=== PATIENT | male | born 1955 | race Caucasian/White ===

== ENCOUNTER 2020-03-13 14:30 | Outpatient (CLI) | payer BC, SELFPAY ==
--- NOTE | 2020-03-13 09:45 | DI.RAD_ITS ---
EXAM: XR KNEE RT 2V AP,LAT CLINICAL HISTORY: pain. TECHNIQUE: 2D digital imaging was performed. COMPARISON: No exams were available for comparison FINDINGS: Mild degenerative changes are seen in the right knee characterized by periarticular spurring particul sofya at the patellofemoral joint. There are densities seen in the suprapatellar joint suspicious for loose bodies. No fracture or dislocation is identified. No joint effusion is seen. The soft tissu es are unremarkable. IMPRESSION: Mild degenerative changes of the right knee. DATA REPOSITORY: RADIATION DOSE DELIVERED:
== END 2020-03-13 14:50 ==
PROVIDERS: PCP Physician Assistant Medical; Visit Provider Orthopaedic Surgery
DX: M17.11 Unilateral primary osteoarthritis, right knee (principal)
CPT/HCPCS: 73560

== ENCOUNTER 2021-04-29 13:40 | Outpatient (CLI) | payer BC, SELFPAY ==
--- NOTE | 2021-04-29 13:30 | DI.RAD_ITS ---
Exam(s) XR KNEE RT 3V AP,LAT,YANCY EXAM: XR KNEE RT 3V AP,LAT,YANCY CLINICAL HISTORY: Internal derangement of right knee. TECHNIQUE: 2D digital imaging was performed of the right knee. Four views obtained. AP, lateral and Merchant views were obtained. COMPARISON: CR XR KNEE RT 2V AP,LAT from 03/13/2020 FINDINGS: BONES: No acute fracture is present. No bony destructive lesion is seen. JOINTS: The knee is normally aligned. No joint effusion is seen. Mild spurring of the posterior lopez la. There again seen densities in the suprapatellar region suspicious for loose bodies. SOFT TISSUE: Normal. IMPRESSION: Stable appearance of the right knee. DATA REPOSITORY: RADIATION DOSE DELIVERED:
== END 2021-04-29 13:41 | disposition home or self-care (01) ==
LOC: DIORS 13:40
PROVIDERS: PCP Family Medicine; Referring Provider Family Medicine; Visit Provider Student in an Organized Health Care Education/Training Program
DX: M25.561 Pain in right knee; M23.8X1 Other internal derangements of right knee
CPT/HCPCS: 73562

== ENCOUNTER 2021-05-07 00:28 | Outpatient (CLI) | payer BC, SELFPAY ==
--- NOTE | 2021-05-07 13:15 | DI.MRI_ITS ---
Exam(s) MR LOWER JOINT RT WO EXAM: MR LOWER JOINT RT WO CLINICAL HISTORY: R KNEE PAIN,INTERNAL DERANGEMENT,M23.91 TECHNIQUE: Multiplanar multisequence MRI of the knee was performed. Plain films of 08/28/2011 and 04/29/2021 reviewed COMPARISON: CR XR KNEE RT 2V AP,LAT from 03/13/2020 CR XR KNEE RT 2V AP,LAT from 03/13/2020 CR XR KNEE RT 3V AP,LAT,YANCY from 04/29/2021 FINDINGS: EFFUSION: There is a small-moderate size joint effusion. There is no Ruiz cyst in the popliteal fos sa. MARROW:There is no evidence of fracture, bone contusion, nor osteochondral defects.. There are no si gnificant osseous lesions. PATELLOFEMORAL COMPARTMENT: The quadriceps tendon is intact. The patellar ligament is intact. There is moderate relatively uniform thinning of the retropatellar cartilage. There is no intraosseo us signal to suggest recent patellar dislocation. There are no patellar retinacular tears. CRUCIATE LIGAMENTS: The anterior cruciate ligament is intact.The posterior cruciate ligament is intac t. MEDIAL COMPARTMENT/MEDIAL MENISCUS: There is a prominent oblique tear in the posterior horn of the me dial meniscus with a small degenerative cysts meniscal cyst behind the posterior horn measuring appro ximately 5 x 4 millimeters. The meniscal root is intact.No obvious tear of the anterior horn noted.. There are moderate cartilage degenerative changes over the medial femoral condyle and there are small marginal osteophytes. Also degenerative pointing of the tibial spines noted. Very mild subarticula r edema in the subjacent tibial plateau. MEDIAL COLLATERAL LIGAMENT: There is some fluid interposed between the superficial and deep layers of the MCL LATERAL COMPARTMENT/LATERAL MENISCUS: There is no evidence of lateral meniscal tear.There are no josé antonio dral defects, osteochondral defects, subarticular marrow edema, nor osteophytes evident.Small benign bone island noted subarticular aspect of the main weight-bearing surface of the lateral femoral condy le. ILIOTIBIAL BAND: Intact LATERAL COLLATERAL LIGAMENT COMPLEX: The fibular collateral ligament is intact. The biceps femoris t endon is intact.Popliteus muscle and tendon are intact. IMPRESSION: 1. There is a prominent oblique tear in the posterior horn of the medial meniscus and there is an ass ociated small 5 x 4 millimeter degenerative meniscal cyst. 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 No osteochondral defects. 2. No tears of the lateral meniscus nor significant degenerative changes in the lateral compartment. 3. There is moderate thinning of the retropatellar cartilage. No osteochondral defect. No patellar retinacular tears. 4. Fluid within the MCL bursa between the deep and superficial components. However, there is no prom inent MCL tear evident. Anterior and posterior cruciate ligaments are intact, as is the lateral collateral ligament complex a nd iliotibial band. Small amount of increased joint fluid. No large joint effusion. No Ruiz cyst. DATA REPOSITORY:
== END 2021-05-07 00:48 ==
PROVIDERS: PCP Family Medicine; Visit Provider Student in an Organized Health Care Education/Training Program
DX: M25.561 Pain in right knee (principal); M25.461 Effusion, right knee; S83.241A Other tear of medial meniscus, current injury, right knee, initial encounter; M23.021 Cystic meniscus, posterior horn of medial meniscus, right knee; M17.11 Unilateral primary osteoarthritis, right knee; M23.8X1 Other internal derangements of right knee
CPT/HCPCS: 73721

== ENCOUNTER 2021-05-28 01:55 | Outpatient (CLI) | payer BC, SELFPAY ==
[2021-05-28 11:46] LABS: Source Nasal/Nares
[2021-05-28 16:14] LABS: COVID-19 PCR Negative (Negative)
== END 2021-05-28 01:56 | disposition home or self-care (01) ==
LOC: LBO 01:55
PROVIDERS: PCP Family Medicine; Visit Provider Student in an Organized Health Care Education/Training Program
DX: Z20.822 Contact with and (suspected) exposure to COVID-19 (principal)
CPT/HCPCS: 87635

== ENCOUNTER 2021-05-30 06:20 | Day surgery (SDC) | payer BC, SELFPAY ==
[2021-05-30] VITALS (7 sets, daily range): BP systolic 113–140; BP diastolic 64–79; PULSE 65–73; RESP 13–20; TEMP 36.4–36.9; O2SAT 94–97; BMI 53.6
--- NOTE | 2021-05-30 06:44 | W.ANESPRE ---
General Info Date of Service Date Performed: 05/30/21 Height: 5 ft 3 in Weight: 137.5 kg Body Mass Index (BMI): 53.6 Surgical Procedure: Operation Date: 05/30/21 07:40 Proposed Procedures Side Surgeon p Knee Arthroscopy w/loose body removal, partial medial menisectomy and any other indicated meniscal, chondral or synovial surgery. Right Ryan Wei MD Meds Allergies and Home Medications Allergies Allergy/AdvReac Type Severity Reaction Status Date / Time No Known Allergies Allergy Unverified 05/30/21 06:34 Home Medication Medication Instructions Recorded lisinopril 20 mg PO DAILY 11/02/13 mometasone [Nasonex] 2 spry NS DAILY PRN 11/02/13 Glucosamine Sulf-Chondroitin 1 cap PO DAILY 11/03/13 omeprazole 20 mg capsule,delayed 20 mg PO DAILY 03/13/20 release ropinirole 0.25 mg tablet 1 mg PO HS PRN tab 03/13/20 simvastatin 5 mg tablet 20 mg PO HS tab 03/13/20 naproxen sodium [Aleve] 220 mg PO BID PRN 05/30/21 Current Visit Medications: Current Medications Generic Name Dose Route Start Last Admin Trade Name Freq PRN Reason Stop Dose Admin Ringer's Solution 1,000 mls @ 100 mls/hr 05/30/21 06:00 IV 06/09/21 23:59 INFUSION ELISEO Cefazolin Sodium 3,000 mg/ 100 mls @ 200 mls/hr 05/30/21 06:00 Sodium Chloride IVPB 05/30/21 16:00 PREOP ELISEO IV Miscellaneous Supplies 1 each 05/30/21 06:00 Iv Access IV 06/09/21 23:59 DIRECTED ELISEO Sodium Chloride 0 ml 05/30/21 06:00 Normal Saline Flush 10 Ml Syr IV 06/09/21 23:59 PRN PRN Sodium Chloride 0 ml 05/30/21 06:00 Normal Saline 10 Ml Vial IJ 06/09/21 23:59 DIRECTED PRN Sterile Water 0 ml 05/30/21 06:00 Water,Injection,Sterile 10 Ml Vial IJ 06/09/21 23:59 DIRECTED PRN PFSH Active Problems Active Problems: Problem Status Onset Code Plantar fasciitis of left foot M72.2 Loose body in knee, right knee M23.41 Medial meniscus tear S83.249A Skin tag L91.8 Medical History Medical History GERD (gastroesophageal reflux disease) HLD (hyperlipidemia) HTN (hypertension) NAYANA (obstructive sleep apnea) RLS (restless legs syndrome) Surgical History Surgical History Hx of cholecystectomy Tobacco Smoking/Tobacco Use Status: Never Alcohol Alcohol Intake: current Alcohol intake frequency: a few times a month Substance Use Substance use: Never Substance use type: does not use Vital Signs and Lab Results Vital Signs Most Recent Vital Signs in EMR: Most Recent Vital Signs Temp Pulse Resp BP Pulse Ox 36.4 C L 73 18 140/78 97 05/30/21 06:29 05/30/21 06:29 05/30/21 06:29 05/30/21 06:29 05/30/21 06:29 Lab Results Blood Type / Crossmatch: No Data to Display Complete Blood Count: No Data to Display Complete Metabolic Panel: No Data to Display Liver Function Panel: No Data to Display Coagulation Panel: No Data to Display Cardiac Panel: No Data to Display Arterial Blood Gas: No Data to Display Venous Blood Gas: No Data to Display Pancreas Panel: No Data to Display Thyroid Panel: No Data to Display Infectious Disease: Coronavirus (COVID-19)(PCR) Negative (Negative) 05/28/21 08:29 05/28/21 Coronavirus 2019 Source Nasal/Nares 05/28/21 08:29 05/28/21 Blood Cultures: No Data to Display Toxicology Panel: No Data to Display Anesthesia Assessment and Plan Anesthesia History Personal History: No History of Anesthesia Complications Family History: No Family History of Anesthesia Complications Exercise Tolerance Exercise Tolerance: Metabolic Equivalents>4 Pertinent Negatives Pertinent Negatives: No Symptoms of GERD, No Major Cardiovascular Symptoms or Complaints and No Major Pulmonary Symptoms or Complaints Cardiac & Pulmonary Exam Cardiac Exam: Normal S1/S2 Heart Sounds Pulmonary Exam: Clear Bilateral Breath Sounds Implantable Cardiac Device Does patient have a Pacemaker or an ICD?: No Airway Exam Known Difficult Airway: No Mallampati Class: 2 Mouth Opening: Narrow (< 3cm) Thyromental Distance: Greater than 3 cm Facial Hair: Full Baptiste Neck Range of Motion: Full ROM Neck Circumference: Thick Teeth Condition: Normal Dentition ASA Classification ASA Score: ASA 3 Emergency Case?: No NPO Status NPO Status: NPO Clears >2 hours, Solids >8 hours Anesthesia Plan Resuscitation Status: Full Code Anesthesia Technique: General Anesthesia Airway Planned: Endotracheal Tube Monitors Used: Standard Monitors Preoperative Comments:: No recent history of GA/ETT, discussed positioning with patient for intubation and anesthetic risk related to elevated BMI.
[2021-05-30] MEDS: Lactated Ringers 1,000 ML 100 ML IV (06:56)
[2021-05-30] MEDS: ceFAZolin 3,000 MG in Normal Saline 100 ML 200 MG IVPB (07:33)
[2021-05-30] MEDS: Bupivacaine 0.25% Pres-Free 30 ML VIAL (08:50)
[2021-05-30] MEDS: EPINEPHrine 30 MG/30 ML VIAL (08:50)
[2021-05-30] MEDS: MORPHine 4 MG/ML SYR (08:50)
--- NOTE | 2021-05-30 09:10 | W.PM.DSUDISC ---
Discharge Plan Disposition Patient Disposition: HOME Condition: Stable Discharge Details Reason For Visit: Right knee surgery Attending Provider: Ryan Wei Primary Care Provider: James Aguilera Home Meds and New Rx's Prescriptions: New naproxen 250 mg tablet 250 - 500 mg PO BID PRNQty: 40 RF: 0 aspirin 81 mg tablet,delayed release (DR/EC) 81 mg PO BID 14 Days Qty: 28 RF: 0 oxycodone 5 mg tablet 5 - 10 mg PO Q4H MDD 30 mg PRN (Reason: moderate to severe pain) Qty: 18 RF: 0 Continued omeprazole 20 mg capsule,delayed release(DR/EC) 20 mg PO DAILY RF: 0 lisinopril 20 MG tablet 20 mg PO DAILY RF: 0 mometasone [Nasonex] 17 GM spray,non-aerosol 2 spry NS DAILY PRN RF: 0 Glucosamine Sulf-Chondroitin 1 EACH capsule 1 cap PO DAILY RF: 0 ropinirole 0.25 mg tablet 1 mg PO HS PRN RF: 0 simvastatin 5 mg tablet 20 mg PO HS RF: 0 Discontinued naproxen sodium [Aleve] 220 mg Tablet 220 mg PO BID PRNRF: 0 Discharge Instructions Additional Instructions: Surgery: Right knee arthroscopy with loose body removal, partial medial & lateral meniscectomy, and skin tag removal Activity: Weight-bearing as tolerated. Advance range of motion as comfort allows. No knee brace or crutches needed as soon as comfortable. Recommend avoiding sports, pivoting, and squatting for 6-8 weeks. A physical therapy prescription will be sent electronically to start in 2 to 3 weeks. Prescriptions: Aspirin 81 mg take 1 twice daily to prevent a blood clot for 14 days Naproxen 250 mg take 1-2 every 12 hours with a meal as needed for moderate pain Oxycodone 5 mg take 1-2 every 4-6 hours as needed for severe pain You may use [id number] Tylenol (acetaminophen) as needed for mild pain. These pain medications may be taken all at once or in different combinations as needed. Also, recommend Colace (docusate) as a stool softener as surgery and pain medicine cause constipation. Dressings: Leave skin tag dressing in place until follow-up. Keep other dressings in place for 3 days. May then remove and leave open to air or cover incisions with Band-Aids. May shower after 5 days. Follow-up: 10-[address] Wei Let us know right away if you develop any redness, drainage, fevers, chest pain, or trouble breathing. Do not drink alcohol or drive for at least 24 hours after anesthesia. Please call the office during business hours with any questions or concerns. Referrals: Ryan Wei MD [ [facility] STAFF PHYSICIAN] - Discharge Orders Discharge Orders: Discharge Order (Routine); Ordered 05/30/21 Ordered By: Ryan Wei DS: Diagnosis Discharge Diagnosis (1) Loose body in knee, right knee: Status: Acute (2) Medial meniscus tear: Status: Acute (3) Skin tag: Status: Acute
--- NOTE | 2021-05-30 09:31 | W.PM.OP ---
Date of service: 05/30/21 Time of Service: 08:00 Operative Note Operative Note DATE OF PROCEDURE: 05/30/21 PRE-OP DIAGNOSIS: Right knee 1. Medial meniscus tear 2. Loose body 3. Symptomatic popliteal skin tag POST-OP DIAGNOSIS: same PROCEDURE: Right knee 1. Partial medial & lateral meniscectomy, CPT #29508: Medial posterior horn degenerative tear and lateral white zone fraying 2. Loose body removal, CPT #38722: About 8 x 10 x 12 mm chondral from the suprapatellar pouch 3. Greater than 2 compartment synovectomy, CPT #87612: Suprapatellar, patellofemoral, medial plica, medial gutter, and medial compartment, and intercondylar areas 4. Skin tag removal, CPT #66676: Single, pedunculated, in popliteal fossa SURGEON: Ryan Wei MANAGER [employer]: Ana Draper ANESTHESIA TYPE: Local By Surgeon and General LMA/ETT Refer to Anesthesia Record PATHOLOGY: none sent TOURNIQUET TIME: 0 Patient was transported to: PACU Patient's condition: stable Indications: Please see complete medical record for details. Findings: Exam under anesthesia: Full range of motion, no instability. Popliteal moderately large pedunculated skin tag impinging into deep flexion. Mechanical symptoms about medial compartment with range of motion. Arthroscopic findings: Significant suprapatellar adhesions and single osteochondral loose body about 10 x 12 x 8 mm in size. Prominent medial plica. Significant engaging inflammatory patellofemoral, medial compartment, and intercondylar synovitis. 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 Intact ACL. Moderately sized white and white-red zone degenerative type complex tearing of the posterior horn medial meniscus with stable root and intact meniscal body. Limited white zone lateral meniscus fraying remainder intact. Procedure Description: In the operating room, genral anesthesia was induced. The patient was positioned supine on the operating room table. All bony prominences were well-padded. Preoperative antibiotics were administered. The knee was prepped and draped in the usual sterile fashion. The correct patient, procedure, and side of the procedure were all verified prior to incision. Exam under anesthesia was performed. 10 cc of 0.25% bupivacaine and 1.5% lidocaine containing epinephrine was infiltrated about the planned anteromedial and anterolateral knee arthroscopy portals. An additional 10 cc of this local anesthetic and epinephrine mixture was infiltrated about the base and stalk of the popliteal area skin tag. The portals were established and a complete diagnostic arthroscopy was performed with relevant findings detailed above. Starting in the suprapatellar pouch, a lysis of adhesions was performed using meniscal biter as a capsular punch and the mechanical shaver to remove pathologic adhesions and recreate the suprapatellar space. Beyond the adhesions was an obvious osteochondral ovoid loose body. The anterior medial portal was enlarged to accommodate its size for removal. A pituitary rongeur was introduced through the portal into the suprapatellar pouch and carefully secured to the loose body which was removed successfully as 1 piece under direct visualization. The synovectomy was continued with meniscal biter as capsular punch resecting and creating a free edge of a large prominent medial plica that was indenting on the medial femoral condyle cartilage. Mechanical shaver was then used to resect medial gutter synovium recreate the medial gutter normal contour. Pathologic engaging synovium was then removed from the patellofemoral space with the knee in extension and then in moderate flexion. In 90 degrees of flexion the intercondylar area was also cleared of inflamed pathologic synovium and this resection extended across the medial compartment. The undersurface patella, trochlea, intercondylar area, medial compartment structures were now able to be visualized. Medial and lateral portals were switched viewing and working, but there is no significant additional pathologic synovium to resect laterally. The arthroscope was directed between the ACL and the lateral femoral condyle into the posterior knee and there was no additional pathology in this location. Attention was turned to the medial meniscus. Using a combination of hand instruments including very straight and curved meniscal biters and a power shaver and working through the anteromedial portal the medial meniscus posterior horn was debrided of all torn tissue to a stable margin. Care was taken to preserve as much meniscus tissue was possible. The meniscal remnant was probed and found to have a stable margin, stable root, and no other tears. In the [id number] position, the limited white zone fraying tearing of the lateral meniscus posterior horn and body was resected using the mechanical shaver. The knee was copiously irrigated with arthroscopic fluid until there was a clear effluent before being drained of all fluid. The anteromedial and anterolateral portals were closed in 3-0 Monocryl in a buried interrupted fashion. The table and extremity were raised and placed in abduction and external rotation on a padded Cano. The posterior popliteal area was reprepped with ChloraPrep. The skin tag and base were thoroughly blanched from epinephrine. The Bovie on cut and then coagulation was used to carefully layer by layer resect across the stalk of the moderately large skin tag. The central area was filled of adipose but also expected vessel. These were tied off with 0 Vicryl. The remainder of the stalk attachments were removed and it was brought to the back table. The resected base was ellipsoid as planned to accommodate closure. There was excellent hemostasis the entire time. The 0 Vicryl and fatty area was going to be prominent especially with knee flexion so it was removed and the subcutaneous fatty tissue site carefully resected to a to create a concave margin with complete hemostasis. The wrist wound was irrigated with normal saline and dried. 2-0 Monocryl in a buried in fashion was used to close the central aspect followed by 3-0 Monocryl in a buried subcuticular fashion to close the margins. Skin glue was applied followed by Mastisol, Telfa, gauze, and Tegaderm bandage. An 18-gauge needle was passed into the knee from superolateral into the suprapatellar pouch. 20 cc of 0.25% bupivacaine with epinephrine containing 4 mg of morphine was infiltrated into the knee through the previously placed needle. Mastisol, Steri-Strips, and 4 x 4 gauze were applied over the incision. The knee was then wrapped gently with an JOSTIN comressive bandage. The patient awoke from anesthesia without complication and was transferred to the recovery room in a stable condition.
--- NOTE | 2021-05-30 10:48 | W.ANESPOSTOP ---
Postoperative Evaluation Date, Time and Location Date Performed: 05/30/21 Time Performed: 10:20 Patient Location: PACU Vital Signs Most Recent Imported Vital Signs: Most Recent Vital Signs Temp Pulse Resp BP Pulse Ox 36.5 C 65 18 125/79 97 05/30/21 10:20 05/30/21 10:20 05/30/21 10:20 05/30/21 10:20 05/30/21 10:20 Pain Score Most Recent Pain Score: Most Recent Pain Score Pain Level 0 05/30/21 10:20 Assessment Mental Status: Awake (Alert & Oriented to Patient Baseline) Airway and Respiratory Function: Patent airway with normal (patient baseline) respiratory exam Cardiovascular Function: Hemodynamically Stable Hydration Status: Adequately Hydrated Nausea & Vomiting: No Nausea or Vomiting Pain: Pt. Denies Any Pain Peripheral Nerve Block: Patient did not receive a nerve block
== END 2021-05-30 10:53 | disposition home or self-care (01) ==
PROVIDERS: PCP Family Medicine; Visit Provider Student in an Organized Health Care Education/Training Program
PROC: (CPT 29870; principal; 2021-05-30 07:30)
DX: M23.261 Derangement of other lateral meniscus due to old tear or injury, right knee (principal); M23.221 Derangement of posterior horn of medial meniscus due to old tear or injury, right knee; M23.41 Loose body in knee, right knee; L91.8 Other hypertrophic disorders of the skin; M67.51 Plica syndrome, right knee; I10 Essential (primary) hypertension; G47.33 Obstructive sleep apnea (adult) (pediatric)
CPT/HCPCS: 29876; 29880; 11200; J0131; J0690; J1100; J1885; J2001; J2270; J2405

== ENCOUNTER 2023-04-06 14:59 | Outpatient (CLI) | payer BC, SELFPAY ==
--- NOTE | 2023-04-06 14:45 | DI.RAD_ITS ---
Exam(s) XR KNEE RT 3V AP,LAT,YANCY EXAM: XR KNEE RT 3V AP,LAT,YANCY CLINICAL HISTORY: right knee f/u. TECHNIQUE: 2D digital imaging was performed. COMPARISON: CR XR KNEE RT 3V AP,LAT,YANCY from 04/29/2021 FINDINGS: 3 views There is no evidence of fracture. Small joint effusion noted. There are degenerative changes-mild i n the medial and lateral compartments as well as lateral aspect of the patellofemoral compartment, ap pearing relatively stable. There is a small cysts calcific density in the suprapatellar bursa which is significantly decreased i n size from previous. In addition, a previously present loose body in the medial aspect is not evide nt on the present study. Bone density normal. No osseous lesions. IMPRESSION: Decrease in size number of calcified loose bodies. Stable degenerative changes. DATA REPOSITORY: RADIATION DOSE DELIVERED:
== END 2023-04-06 15:00 | disposition home or self-care (01) ==
LOC: DIORS 14:59
PROVIDERS: PCP Family Medicine; Visit Provider Student in an Organized Health Care Education/Training Program
DX: Z98.890 Other specified postprocedural states (principal)
CPT/HCPCS: 73562